=== PATIENT | male | born 1990 | race Caucasian/White ===

== ENCOUNTER 2017-08-17 20:02 | Emergency (ER) | payer BC ==
--- NOTE | 2017-08-17 20:15 | PDOC ---
History of Present Illness - General History Source: Patient Exam Limitations: No Limitations - History of Present Illness Initial Comments: 08/17/17 20:54 The patient is a 27 year old male, with no significant past medical history, who presents to the emergency department with, twelve hours s/p mechanical fall with a laceration on his third and fourth digit of his right hand. The patient reports tripping and falling on ice when holding a glass bowl. He reports his tetanus is up to date. He denies any recent fevers, chills, headache or dizziness. He denies any recent nausea, vomit, diarrhea or constipation. He denies any recent chest pain or shortness of breath. He denies any recent dysuria, frequency, urgency or hematuria. PAST MEDICAL HISTORY: no significant history PAST SURGICAL HISTORY: no significant history FAMILY HISTORY: no pertinent history SOCIAL HISTORY: Pt lives with family and is employed. MEDICATIONS: reviewed ALLERGIES: As per nursing notes ROS: General: No fevers or chills, no weakness, no weight loss HEENT: No change in vision. No sore throat,. No ear pain CardioVascular: No chest pain or shortness of breath Respiratory:No cough, or wheezing. Gastrointestinal: no nausea, vomiting, diarrhea or constipation, No rectal bleeding Genitourinary: No dysuria, hematuria, or frequency Musculoskeletal: No joint or muscle pain or swelling Hand: +Laceration on third and fourth digit of the right hand. Neurologic: No headache, vertigo, dizziness or loss of consciousness Psychiatric: nor depression Skin: No rashes or easy bruising Endocrine: no increased thirst or abnormal weight change Allergic: no skin or latex allergy All other systems reviewed and normal Physical Exam: GENERAL: The patient is awake, alert, and fully oriented, in no acute distress. HEAD: Normal with no signs of trauma. EYES: Pupils equal, round and reactive to light, extraocular movements intact, sclera anicteric, conjunctiva clear. EXTREMITIES: Normal range of motion, no edema. HAND: +Small cm superficial laceration to the tip of the third digit of the right hand lateral distal phalanx palmar side with a small amount of bleeding. + Small flap laceration 1 cm in length to the distal phalanx palmar side of the fourth digit of the right hand without bleeding. +Superficial abrasions over the palmar side of the wrist of the right hand. NEUROLOGICAL: Normal speech, normal gait. PSYCH: Normal mood, normal affect. SKIN: Warm, Dry, normal turgor, no rashes or lesions noted. <Shanice Patel - Last Filed: 08/17/17 20:54> - General History Source: Patient Exam Limitations: No Limitations - History of Present Illness Initial Comments: A portion of this note was documented by scribe services under my direction. I have reviewed the details of the note, within reason, and agree with the documentation. The case summary and management plan written by me. A portion of this note was documented by scribe services under my direction. I have reviewed the details of the note, within reason, and agree with the documentation. The case summary and management plan written by me. Procedure note laceration repair index finger laceration was cleaned and repaired with Dermabond patient tolerated well The other superficial lacerations had Band-Aids placed over them Assessment and plan: This is a 27-year-old male who comes in complaining of a laceration to his index and middle finger middle finger did not require anything more than a Band-Aid however the index finger didn't require some Dermabond. A shunt tetanus was up to stay date and he was discharged home with his mother. 08/17/17 21:40 <Marika Torres I - Last Filed: 08/17/17 21:41> - General Chief Complaint: Laceration Stated Complaint: RH 4TH FINGER LAC Time Seen by Provider: 08/17/17 20:04 Past History <Shanice Patel - Last Filed: 08/17/17 20:54> - Immunization History Immunization Up to Date: Yes - Suicide/Smoking/Psychosocial Hx Smoking History: Never smoked Hx Alcohol Use: No Drug/Substance Use Hx: No Substance Use Type: None <Marika Torres I - Last Filed: 08/17/17 21:41> - Past Medical History Allergies/Adverse Reactions: Allergies Allergy/AdvReac Type Severity Reaction Status Date / Time No Known Allergies Allergy Verified 09/06/15 13:06 Home Medications: Ambulatory Orders NK [No Known Home Medication] 09/06/15 *Physical Exam - Vital Signs Last Vital Signs Temp Pulse Resp BP Pulse Ox 98.4 F 71 16 112/59 100 08/17/17 20:05 08/17/17 20:05 08/17/17 20:05 08/17/17 20:05 08/17/17 20:05 <Shanice Patel - Last Filed: 08/17/17 20:54> *DC/Admit/Observation/Transfer - Attestations Scribe Attestion: 08/17/17 20:54 Documentation prepared by Shanice Patel, acting as medical appointment scheduler for Marika Torres MD. <Shanice Patel - Last Filed: 08/17/17 20:54> - Discharge Dispostion Admit: No <Marika Torres I - Last Filed: 08/17/17 21:41> Diagnosis at time of Disposition: Laceration of finger Qualifiers: Encounter type: initial encounter Finger: index finger Damage to nail status: without damage Foreign body presence: without foreign body Laterality: right Qualified Code(s): S61.210A - Laceration without foreign body of right index finger without damage to nail, initial encounter - Discharge Dispostion Disposition: HOME Condition at time of disposition: Stable - Patient Instructions Printed Discharge Instructions: DI for Laceration Repair With Dermabond Additional Instructions: Keep the finger dry for the next 72 hours that has the Dermabond on it. Do not use any lotions creams or ointments or petroleum based products on the glue as it will cause it to come off early. Return to the emergency department immediately with ANY new, persistent or worsening symptoms. Continue any medications as previously prescribed by your physician. You should follow up with your primary doctor as soon as possible regarding today's emergency department visit. . Please make sure your doctor reviews the results of your emergency evaluation. Thank you for coming to the Emergency Department today for your care. It was a pleasure to see you today. Please note that your evaluation is INCOMPLETE until you follow-up with your doctor.
[2017-08-17 20:21] VITALS: BP 112/59; PULSE 71; TEMP 98.4; BMI 21.1
== END 2017-08-17 20:48 | disposition home or self-care (01) ==
LOC: FER 20:02
PROC: 0HQFXZZ Repair Right Hand Skin, External Approach (ICD-10-PCS; principal; 2017-08-17)
DX: S61.210A Laceration without foreign body of right index finger without damage to nail, initial encounter (principal); W00.0XXA Fall on same level due to ice and snow, initial encounter; Y93.89 Activity, other specified; Y92.9 Unspecified place or not applicable
CPT/HCPCS: 99281-25